=== PATIENT | male | born 1960 | race Caucasian/White ===

== ENCOUNTER 2018-11-27 09:07 | Day surgery (SDC) | payer MEDICARE, OTHER ==
[~2018-11-27] VITALS: Ht 175.3 cm; Wt 105.2 kg
[~2018-11-27 09:07] MED LIST: ASMANEX220 MC1 INH; CITALOPRAM HBR20 MG PO; D-20002000 UNIT PO; FERRETTS325 MG PO; HYDROXYZINE HCL25 MG PO; OLOPATADINE HC2.5 ML OP; OMEPRAZOLE20 MG PO; VENTOLIN HFA18 GM INH
--- NOTE | 2018-11-27 11:33 | NUR ---
11/27/18 1133 Ti[address] Mederos 1127 PATIENT ARRIVES TO PACU SLEEPING, AWAKENS WITH VERBAL STIMULI, ANSWERS QUESTIONS APPROPRIATELY. BACK TO SLEEP. RESP EVEN AND UNLABORED, NC AT 3 LITERS, WITH SATS 99%. PATIENT PASSING GAS. 1130 NC OFF.
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
== END 2018-11-27 12:15 | disposition home or self-care (01) ==
LOC: OPS 09:07 → DS 09:07 → OPS 10:30
PROVIDERS: Colon & Rectal Surgery
PROC: 0DBE8ZX Excision of Large Intestine, Via Natural or Artificial Opening Endoscopic, Diagnostic (ICD-10-PCS; principal; 2018-11-27 10:30)
DX: D12.6 Benign neoplasm of colon, unspecified (principal); K63.5 Polyp of colon; I10 Essential (primary) hypertension; J45.20 Mild intermittent asthma, uncomplicated; E78.5 Hyperlipidemia, unspecified; F32.9 Major depressive disorder, single episode, unspecified; F41.9 Anxiety disorder, unspecified; E66.9 Obesity, unspecified; Z88.0 Allergy status to penicillin; Z88.5 Allergy status to narcotic agent; Z83.71 Family history of colonic polyps; Z79.899 Other long term (current) drug therapy
CPT/HCPCS: 99153; G0500; J2250; J3010; J7120

== ENCOUNTER 2019-07-08 14:37 | Emergency (ER) | payer OTHER, MEDICARE ==
[~2019-07-08] VITALS: Ht 175.3 cm; Wt 108.9 kg
[2019-07-08] MEDS ORDERED: NAPROXEN500 MG PO (15:02)
== END 2019-07-08 18:54 | disposition home or self-care (01) ==
LOC: ED 14:37
DX: S83.91XA Sprain of unspecified site of right knee, initial encounter (principal); X50.9XXA Other and unspecified overexertion or strenuous movements or postures, initial encounter; K21.9 Gastro-esophageal reflux disease without esophagitis; Z88.0 Allergy status to penicillin; Z88.5 Allergy status to narcotic agent; Z79.899 Other long term (current) drug therapy
CPT/HCPCS: 73560; 99283-25